=== PATIENT | female | born 1930 | race Caucasian/White ===

== ENCOUNTER → 2016-12-17 | Outpatient (CLI) | payer MEDICARE ==
[~2016-12-17] MED LIST: ALN70T PO; LEVO75TA6 PO; LVT.088T PO; OMEP20TA2 PO; OMEP40CA36 PO; TRAM50TA2 PO
--- NOTE | 2016-12-18 14:13 | Diagnostic Imaging Report ---
Bilateral screening mammogram 2D views with tomosynthesis The current study was also evaluated with a Computer Aided Detection (CAD) system. INDICATION: Screening. No current complaints stated on the questionnaire. COMPARISON: 12/15/2015. FINDINGS: The breasts are composed of heterogeneously dense parenchyma which may decrease mammographic sensitivity. There are benign-appearing and vascular calcifications seen. Allowing for technique and positional differences, no suspicious change is seen. IMPRESSION: Dense breasts with no definite change. ACR BI-RADS Category 2: Benign findings. Result letter will be mailed to the patient. Note: At least 10% of breast cancer is not imaged by mammography. Dictated by: Dictated on workstation # [id number]
== END ==
LOC: RAD 11:29
PROVIDERS: ATTEND Family Medicine
DX: Z12.31 Encounter for screening mammogram for malignant neoplasm of breast (principal)
CPT/HCPCS: 77067

== ENCOUNTER → 2017-08-06 | Outpatient (CLI) | payer MEDICARE ==
--- NOTE | 2017-08-06 09:10 | Diagnostic Imaging Report ---
INDICATION: Pulsating abdominal mass with bruit. TECHNIQUE: Grayscale sonographic images of the abdominal aorta. CORRELATION STUDY: None FINDINGS: Abdominal Aorta Proximal: 1.6 x 1.9 cm Mid: 1.4 x 1.2 cm Distal: 1.3 x 1.3 cm Common Iliac Arteries Right GLENYS: 0.9 x 0.7 cm Left GLENYS: 0.7 x 0.9 cm IMPRESSION: 1. Negative for abdominal aortic aneurysm. Dictated by: Dictated on workstation # [id number]
== END ==
LOC: RAD 08:27
PROVIDERS: ATTEND Family Medicine
DX: R19.09 Other intra-abdominal and pelvic swelling, mass and lump (principal); R09.89 Other specified symptoms and signs involving the circulatory and respiratory systems
CPT/HCPCS: 76775

== ENCOUNTER → 2017-09-09 | Outpatient (CLI) | payer MEDICARE | LOC: CARD 08:43 | PROVIDERS: ATTEND Family Medicine | DX: R09.89 Other specified symptoms and signs involving the circulatory and respiratory systems (principal); R01.1 Cardiac murmur, unspecified; I34.0 Nonrheumatic mitral (valve) insufficiency | CPT/HCPCS: 93306 ==

== ENCOUNTER 2018-06-13 15:50 | Emergency (ER) | payer MEDICARE ==
[~2018-06-13] VITALS: Ht 162.6 cm; Wt 49.4 kg
[2018-06-13 15:56] VITALS: BP 139/68
[2018-06-13] MEDS ORDERED: ONDANSETRON 4 MG/2 ML (SDV) Z0FRAN IVP ONE (16:00)
[2018-06-13] MEDS ORDERED: fentaNYL INJECTION 100 MCG/2 ML AMP IVP PRN (16:00)
--- NOTE | 2018-06-13 16:04 | ED Abdominal Pain ---
General Chief Complaint: Abdominal/GI Problems Stated Complaint: NAUSEA/VOMITING Nursing Triage Note: EPIGASTRIC PAIN STARTING WED ALONG WITH N/V. STATES IT FEELS LIKE A BAND IS AROUND HER STOMACH. Sepsis Screen: No Definite Risk Source of Information: Patient Exam Limitations: No Limitations History of Present Illness Date Seen by Provider: Jun 13, 2018 Time Seen by Provider: 16:03 Initial Comments To ER by her daughter per private vehicle with reports of epigastric abdominal pain that began 3 days ago after eating some lemon pipe. She believes she may have some bad pie. She denies any diarrhea, last bowel movement was 2 days ago. She is passing quite a bit of gas. She denies any fevers. Prior history of cholecystectomy in [address] Foster. Timing/Duration: 1-2 Days Severity/Quality: Moderate Location: Epigastric Radiation: No Radiation Activities at Onset: None Associated Symptoms: Nausea/Vomiting Allergies and Home Medications Allergies Coded Allergies: No Known Drug Allergies (Verified , 06/13/18) Home Medications Levothyroxine Sodium 75 Mcg Tablet, 75 MCG PO DAILY, (Reported) Omeprazole 40 Mg Capsule.dr, 40 MG PO DAILY, (Reported) Tramadol HCl 50 Mg Tablet, 50 MG PO Q12H PRN for PAIN Prescribed by: DOM RAMOS on 06/24/15 1032 Patient Home Medication List Home Medication List Reviewed: Yes Review of Systems Review of Systems Constitutional: see HPI EENTM: No Symptoms Reported Respiratory: No Symptoms Reported Cardiovascular: No Symptoms Reported Gastrointestinal: See HPI, Abdominal Pain, Constipated; Denies Diarrhea; Nausea ; Denies Vomiting Genitourinary: No Symptoms Reported Musculoskeletal: no symptoms reported Skin: no symptoms reported Psychiatric/Neurological: No Symptoms Reported Endocrine: No Symptoms Reported Past Ottavbc-Xnmzas-Wwuqtu Hx Patient Social History Recent Foreign Travel: No Contact w/Someone Who Travel: No Recent Infectious Disease Expo: No Past Medical History Reproductive Disorders: No Sexually Transmitted Disease: No HIV/AIDS: No Gastroesophageal Reflux, Chronic Constipation Chronic Back Pain Loss of Vision: Bilateral Adverse Reaction/Blood Tranf: No (HAS HAD BLOOD WITH NO PROBLEMS) Physical Exam Vital Signs Vital Signs - First Documented 06/13/18 15:56 Temp 97.8 Pulse 89 Resp 15 B/P (MAP) 139/68 (91) Pulse Ox 97 O2 Delivery Room Air Capillary Refill : Less Than 3 Seconds Height/Weight/BMI Height: 5'4.00" Weight: 109lbs. 2.0oz. 49.547139jy; 24.79 BMI Method:Stated General Appearance: WD/WN, no apparent distress HEENT: PERRL/EOMI, normal ENT inspection Respiratory: no respiratory distress, no accessory muscle use Gastrointestinal: normal bowel sounds, soft, tenderness Extremities: normal range of motion, non-tender Neurologic/Psychiatric: alert, normal mood/affect, oriented x 3 Skin: normal color Progress/Results/Core Measures Results/Orders Lab Results Laboratory Tests Test 06/13/18 16:07 06/13/18 16:08 Range/Units White Blood Count 14.6 H 4.3-11.0 10^3/uL Red Blood Count 4.80 4.35-5.85 10^6/uL Hemoglobin 13.7 11.5-16.0 G/DL Hematocrit 43 35-52 % Mean Corpuscular Volume 89 80-99 FL Mean Corpuscular Hemoglobin 29 25-34 PG Mean Corpuscular Hemoglobin Concent 32 32-36 G/DL Red Cell Distribution Width 15.2 H 10.0-14.5 % Platelet Count 395 130-400 10^3/uL Mean Platelet Volume 10.0 7.4-10.4 FL Neutrophils (%) (Auto) 80 H 42-75 % Lymphocytes (%) (Auto) 10 L 12-44 % Monocytes (%) (Auto) 10 0-12 % Eosinophils (%) (Auto) 0 0-10 % Basophils (%) (Auto) 0 0-10 % Neutrophils # (Auto) 11.6 H 1.8-7.8 X 10^3 Lymphocytes # (Auto) 1.5 1.0-4.0 X 10^3 Monocytes # (Auto) 1.5 H 0.0-1.0 X 10^3 Eosinophils # (Auto) 0.0 0.0-0.3 10^3/uL Basophils # (Auto) 0.0 0.0-0.1 10^3/uL Neutrophils % (Manual) 82 % Lymphocytes % (Manual) 9 % Monocytes % (Manual) 9 % Blood Morphology Comment NORMAL Prothrombin Time 13.3 12.2-14.7 SEC INR Comment 1.0 0.8-1.4 Activated Partial Thromboplast Time 30 24-35 SEC Sodium Level 140 135-145 MMOL/L Potassium Level 4.1 3.6-5.0 MMOL/L Chloride Level 104 98-107 MMOL/L Carbon Dioxide Level 25 21-32 MMOL/L Anion Gap 11 5-14 MMOL/L Blood Urea Nitrogen 15 7-18 MG/DL Creatinine 1.07 0.60-1.30 MG/DL Estimat Glomerular Filtration Rate 48 BUN/Creatinine Ratio 14 Glucose Level 100 70-105 MG/DL Calcium Level 9.9 8.5-10.1 MG/DL Corrected Calcium 10.1 8.5-10.1 MG/DL Total Bilirubin 3.9 H 0.1-1.0 MG/DL Aspartate Amino Transf (AST/SGOT) 170 H 5-34 U/L Alanine Aminotransferase (ALT/SGPT) 262 H 0-55 U/L Alkaline Phosphatase 291 H 40-136 U/L Troponin I < 0.028 <0.028 NG/ML Total Protein 7.0 6.4-8.2 GM/DL Albumin 3.8 3.2-4.5 GM/DL Lipase 595 H 8-78 U/L Urine Color SIL H Urine Clarity SLIGHTLY CLOUDY Urine pH 6 5-9 Urine Specific [place] 1.020 1.016-1.022 Urine Protein 2+ H NEGATIVE Urine Glucose (UA) NEGATIVE NEGATIVE Urine Ketones 2+ H NEGATIVE Urine Nitrite POSITIVE H NEGATIVE Urine Bilirubin 3+ H NEGATIVE Urine Urobilinogen 12 H NORMAL MG/DL Urine Leukocyte Esterase 2+ H NEGATIVE Urine RBC (Auto) 1+ H NEGATIVE Urine RBC 0-2 /HPF Urine WBC 10-25 H /HPF Urine Squamous Epithelial Cells 2-5 /HPF Urine Crystals NONE /LPF Urine Bacteria FEW H /HPF Urine Casts NONE /LPF Urine Mucus SMALL H /LPF Urine Culture Indicated YES My Orders Orders - KITTY BERRY [employer] SUPERVISOR Cbc With Automated Diff (06/13/18 15:58) Comprehensive Metabolic Panel (06/13/18 15:58) Lipase (06/13/18 15:58) Troponin I (06/13/18 15:58) Ekg Tracing (06/13/18 15:58) Ua Culture If Indicated (06/13/18 15:58) Chest 1 View, Ap/Pa Only (06/13/18 15:58) Fentanyl Injection (Sublimaze Injection (06/13/18 16:00) Ondansetron Injection (Zofran Injectio (06/13/18 16:00) Manual Differential (06/13/18 16:07) Urine Culture (06/13/18 16:08) Ct Abdomen/Pelvis W (06/13/18 16:37) Ns Iv 1000 Ml (Sodium Chloride 0.9%) (06/13/18 16:45) Protime With Inr (06/13/18 16:41) Partial Thromboplastin Time (06/13/18 16:41) Iohexol Injection (Omnipaque 350 Mg/Ml 1 (06/13/18 18:00) Received Contrast (Hold Metformin- Contr (06/13/18 18:00) Ceftriaxone For Iv Use (Rocephin For I (06/13/18 18:30) Medications Given in ED Current Medications Medications Dose Ordered Sig/Alis Route Start Time Stop Time Status Last Admin Dose Admin Fentanyl Citrate 25 mcg ONCE PRN IVP 06/13/18 16:00 06/13/18 16:22 25 MCG Iohexol 100 ml ONCE ONCE IV 06/13/18 18:00 06/13/18 18:01 DC 06/13/18 17:50 100 ML Ondansetron HCl 4 mg ONCE ONCE IVP 06/13/18 16:00 06/13/18 16:01 DC 06/13/18 16:22 4 MG Vital Signs/I&O 06/13/18 15:56 Temp 97.8 Pulse 89 Resp 15 B/P (MAP) 139/68 (91) Pulse Ox 97 O2 Delivery Room Air Blood Pressure Mean: 91 Diagnostic Imaging Diagonstic Imaging: Xray, CT Comments NAME: [facility] REC#: [id number] PT STATUS: REG ER : 1930 PHYSICIAN: KITTY BERRY APRN ADMIT DATE: 06/13/18/ER Signed Date of Exam:06/13/18 CHEST 1 VIEW, AP/PA ONLY INDICATION: Epigastric pain. Portable chest at 04:32 p.m. FINDINGS: Heart size and pulmonary vascularity are normal. Lungs are clear. There are no effusions or pneumothoraces. IMPRESSION: Negative chest. Dictated by: Dictated on workstation # [id number] Dict: 06/13/18 1637 Trans: 06/13/18 1644 [id number] Interpreted by: VALERI HAYNES MD Electronically signed by: VALERI HAYNES MD 06/13/181643 NAME: [facility] REC#: [id number] PT STATUS: REG ER : 1930 PHYSICIAN: KITTY BERRY APRN ADMIT DATE: 06/13/18/ER Draft Date of Exam:06/13/18 CT ABDOMEN/PELVIS W PROCEDURE: CT abdomen and pelvis with contrast. TECHNIQUE: Multiple contiguous axial images were obtained through the abdomen and pelvis after administration of intravenous contrast. Auto Exposure Controls were utilized during the CT exam to meet ALARA standards for radiation dose reduction. INDICATION: Epigastric pain Lung bases are clear. There is a 5 cm hemangioma in the posterior segment of the right lobe of the liver. There is a small cyst in the right lobe of the liver. The intrahepatic bile ducts and common bile duct are dilated. The gallbladder surgically absent. No pancreatic masses. There are no appreciable calculi in the bile duct. There is calcific atherosclerosis of the aorta but no aneurysm. There are parapelvic cysts in the left kidney. There is no solid mass, calculus or hydronephrosis in either kidney. Small bowel is not dilated. The appendix is not seen but there is no evidence for appendicitis. Colon is unremarkable. Urinary bladder is normal. Uterus is surgically absent. There is no intraperitoneal free air or free fluid. IMPRESSION: Postop changes from cholecystectomy. There is intra-and extrahepatic biliary duct dilatation suggesting obstruction in the sphincter of Chon but cause of the obstruction is inconclusive from the study. Dictated on workstation # [id number] Dict: 06/13/181757 Trans: 06/13/181811 [facility] [id number] Interpreted by: VALERI HAYNES MD Electronically signed by: Departure Communication (Admissions) This 1649. Pain is well controlled at this time after 25 g of fentanyl and 4 mg of Zofran. IV fluids are being given, Rocephin being given for urinary tract infection. I did discuss CODE STATUS with patient, she wishes to be a DO NOT RESUSCITATE status. We will obtain CT abdomen pelvis with contrast and hydrate after. 1847-I discussed the CT findings with our surgeon Dr. Hale, recommends transfer to facility with ERCP capability. Spoke with Dr. Manzano, hospitalist at [facility] in [place]. She Accepts patient in transfer. Impression Primary Impression: Pancreatitis Qualified Codes: K85.90 - Acute pancreatitis without necrosis or infection, unspecified Additional Impression: Urinary tract infection Qualified Codes: N30.00 - Acute cystitis without hematuria Disposition: ADMITTED INPATIENT Condition: Stable Admissions Decision to Admit Reason: Admit from ER (General) Decision to Admit/Date: Jun 13, 2018 Time/Decision to Admit Time: 16:40 Departure-Patient Inst. Referrals: ABBY ALBERTO DO (PCP/Family) Primary Care Physician KITTY BERRY [employer]SEM[employer] SUPERVISOR Jun 13, 2018 16:04
[2018-06-13 16:14] LABS: BASOPHILS % (AUTO) 0 % (0-10); EOSINOPHILS % (AUTO) 0 % (0-10); HEMATOCRIT 43 % (35-52); HEMOGLOBIN 13.7 G/DL (11.5-16.0); LYMPHOCYTES # (AUTO) 1.5 X 10^3 (1.0-4.0); LYMPHOCYTES % (AUTO) 10 % (12-44); MEAN CORPUSCULAR HEMOGLOBIN 29 PG (25-34); MEAN CORPUSCULAR HGB CONC 32 G/DL (32-36); MEAN CORPUSCULAR VOLUME 89 FL (80-99); MONOCYTES # (AUTO) 1.5 X 10^3 (0.0-1.0); MONOCYTES % (AUTO) 10 % (0-12); NEUTROPHILS # (AUTO) 11.6 X 10^3 (1.8-7.8); NEUTROPHILS % (AUTO) 80 % (42-75); PLATELET COUNT 395 10^3/uL (130-400); RED CELL DISTRIBUTION WIDTH 15.2 % (10.0-14.5); WHITE BLOOD COUNT 14.6 10^3/uL (4.3-11.0)
[2018-06-13 16:21] LABS: CLARITY,URINE SLIGHTLY CLOUDY; COLOR,URINE AMBER; GLUCOSE, URINE (UA) NEGATIVE (NEGATIVE); KETONES,URINE 2+ (NEGATIVE); LEUKOCYTE ESTERASE ,URINE 2+ (NEGATIVE); NITRITE,URINE POSITIVE (NEGATIVE); PH,URINE 6 (5-9); PROTEIN,URINE 2+ (NEGATIVE); UROBILINOGEN,URINE 12 MG/DL (NORMAL)
[2018-06-13 16:34] LABS: ALANINE AMINOTRANSFERASE 262 U/L (0-55); ALBUMIN 3.8 GM/DL (3.2-4.5); ALKALINE PHOSPHATASE 291 U/L (40-136); BILIRUBIN,TOTAL 3.9 MG/DL (0.1-1.0); BUN/CREATININE RATIO 14; CALCIUM 9.9 MG/DL (8.5-10.1); CARBON DIOXIDE 25 MMOL/L (21-32); CHLORIDE 104 MMOL/L (98-107); CREATININE SERUM 1.07 MG/DL (0.60-1.30); GFR ESTIMATED 48; GLUCOSE 100 MG/DL (70-105); LIPASE 595 U/L (8-78); POTASSIUM 4.1 MMOL/L (3.6-5.0); SODIUM 140 MMOL/L (135-145)
[2018-06-13 16:34] LABS: BACTERIA,URINE FEW /HPF; RBC,URINE 0-2 /HPF
[2018-06-13 16:35] LABS: BILIRUBIN,URINE 3+ (NEGATIVE)
[2018-06-13 16:41] LABS: LYMPHOCYTES % (MANUAL) 9 %; MONOCYTES % (MANUAL) 9 %; NEUTROPHILS % (MANUAL) 82 %; RBC MORPH NORMAL
--- NOTE | 2018-06-13 16:41 | Diagnostic Imaging Report ---
INDICATION: Epigastric pain. Portable chest at 04:32 p.m. FINDINGS: Heart size and pulmonary vascularity are normal. Lungs are clear. There are no effusions or pneumothoraces. IMPRESSION: Negative chest. Dictated by: Dictated on workstation # [id number]
[2018-06-13] MEDS ORDERED: NS IV 1000 ML 1,000 ML IV SCH (16:45)
[2018-06-13 17:08] LABS: PROTHROMBIN TIME PATIENT 13.3 SEC (12.2-14.7)
[2018-06-13] MEDS ORDERED: IOHEXOL 350 MG/ML 100 ML (OMNIPAQUE 350) VIAL IV ONE (18:00)
[2018-06-13] MEDS ORDERED: HOLD METFORMIN - RECEIVED CONTRAST 20 ML VIAL IV SCH (18:00)
--- NOTE | 2018-06-13 18:12 | Diagnostic Imaging Report ---
PROCEDURE: CT abdomen and pelvis with contrast. TECHNIQUE: Multiple contiguous axial images were obtained through the abdomen and pelvis after administration of intravenous contrast. Auto Exposure Controls were utilized during the CT exam to meet ALARA standards for radiation dose reduction. INDICATION: Epigastric pain Lung bases are clear. There is a 5 cm hemangioma in the posterior segment of the right lobe of the liver. There is a small cyst in the right lobe of the liver. The intrahepatic bile ducts and common bile duct are dilated. The gallbladder surgically absent. No pancreatic masses. There are no appreciable calculi in the bile duct. There is calcific atherosclerosis of the aorta but no aneurysm. There are parapelvic cysts in the left kidney. There is no solid mass, calculus or hydronephrosis in either kidney. Small bowel is not dilated. The appendix is not seen but there is no evidence for appendicitis. Colon is unremarkable. Urinary bladder is normal. Uterus is surgically absent. There is no intraperitoneal free air or free fluid. IMPRESSION: Postop changes from cholecystectomy. There is intra-and extrahepatic biliary duct dilatation suggesting obstruction in the sphincter of Chon but cause of the obstruction is inconclusive from the study. Dictated by: Dictated on workstation # [id number]
[2018-06-13] MEDS ORDERED: cefTRIAXone FOR IV USE 1,000 MG in WATER (STERILE) FOR INJECTION 10 ML IV ONE (18:30)
--- NOTE | 2018-06-13 19:38 | NUR ---
amb to restroom. states pain and nausea is controlled. consent for transfer obtained
== END 2018-06-13 20:54 | disposition short-term general hospital (02) ==
LOC: EDUNIT# 15:50 → ER 15:51
DX: K85.90 Acute pancreatitis without necrosis or infection, unspecified (principal); N39.0 Urinary tract infection, site not specified; K21.9 Gastro-esophageal reflux disease without esophagitis; Z87.19 Personal history of other diseases of the digestive system; Z90.49 Acquired absence of other specified parts of digestive tract
CPT/HCPCS: 36415; 71045; 74177; 80053; 81000; 83690; 84484; 85007; 85027; 85610; 85730; 87088; 93005